=== PATIENT | female | born 1995 | race Caucasian/White ===

== ENCOUNTER 2017-12-19 00:49 | Emergency (ER) | payer BC ==
[~2017-12-19] VITALS: Ht 177.8 cm; Wt 63.5 kg
[2017-12-19 01:08] VITALS: BP 123/93
== END 2017-12-19 02:54 | disposition home or self-care (01) ==
LOC: ER 00:55
DX: S20.212A Contusion of left front wall of thorax, initial encounter (principal); V89.2XXA Person injured in unspecified motor-vehicle accident, traffic, initial encounter; Y93.89 Activity, other specified; Y92.89 Other specified places as the place of occurrence of the external cause; Y99.8 Other external cause status
CPT/HCPCS: 71100; 99284; A4606; Z7610